=== PATIENT | male | born 1965 | race Caucasian/White ===

== ENCOUNTER 2016-05-27 20:09 | Emergency (ER) | payer BC ==
--- NOTE | ~2016-05-27 | ER ---
PATIENT'S NAME: SAURABH ROMERO [facility] AGE: 50 Y [address] ROOM: [place] [address] LOCATION: [facility] ADMIT DATE: 05/27/2016 ER/Outpatient Report DISCHARGE DATE: 05/27/2016 FAMILY PHYSICIAN: Dawson Naqvi MD ATTENDING PHYSICIAN: Walter Moore Time of Arrival: 2013 hours. Time of evaluation: 2035 hours. CHIEF COMPLAINT: Abdominal pain. HISTORY OF PRESENT ILLNESS: The patient has a history of chronic abdominal pain. He states that he has ran out of his Fentora pills that he takes for his abdominal pain. He states he has had pain more often this last month than he had been. His pain had been pretty well controlled with Fentora. He does see Dr. Perry for pain control. He states the pain tonight started about an hour and half ago. He has been nauseated, has only vomited x1. States he had a bowel movement today. He has had some problems between diarrhea and constipation. He denies feeling fever or chills. He denies any urinary changes. ALLERGIES: HE HAS NO KNOWN ALLERGIES. CURRENT MEDICATIONS: On his chart and reviewed by me. PAST MEDICAL HISTORY: Hiatal hernia, chronic abdominal pain. PAST SURGICAL HISTORY: None, has had a colonoscopy and endoscopy in the past. SOCIAL HISTORY: Smokes half pack per day and has for the last 15 years. Denies use of drugs or alcohol. Does do chewing tobacco also. REVIEW OF SYSTEMS: All negative other than those mentioned in the HPI. PHYSICAL EXAMINATION: VITAL SIGNS: He weighs 77.8 kg. Blood pressure is 125/88, pulse is 61, respirations 18, temperature of 96.6, O2 saturation is 99% on room air. GENERAL: He is awake, alert, and oriented x4. PATIENT'S NAME: SAURABH ROMERO [facility] AGE: 50 Y [address] ROOM: [place] [address] LOCATION: [facility] ADMIT DATE: 05/27/2016 ER/Outpatient Report DISCHARGE DATE: 05/27/2016 FAMILY PHYSICIAN: Dawson Naqvi MD ATTENDING PHYSICIAN: Walter Moore SKIN: [place], warm, and dry. RESPIRATIONS: Even and nonlabored. Lung sounds are clear throughout. HEART: Regular rate and rhythm. ABDOMEN: Soft and nondistended. Bowel sounds are present. He has generalized tenderness in the mid abdominal area. He denies the pain being any different than he normally does. Last time he ran out of his pain medicine and came to the ER, we gave him fentanyl patch to wear for 3 days. He states that did help and would like to try that again. Fentanyl transdermal patch 50 mcg/hour x1 was ordered from the pharmacy and placed it on the patient. IMPRESSION: Chronic abdominal pain. PLAN: Home, rest. Leave the patch on. He is to see Dr. Naqvi within the next 1- 2 days. Return to the ER as needed. He verbalized understanding. RALEIGH RAWLS APRN FOR MD FATEMEH RAYO/danielle /[id number] d: 05/28/168 t: 06/03/16 1304, OUTPATIENT REPORT
[~2016-05-27 20:09] MED LIST: ATIVAN2 MG; LIBRAX CAPSULE1 EACH PO; NORCO 5-325 MG1 TAB PO; PROBIOTIC1 EAC1 PO; TYLENOL EXTRA500 MG PO; ZANTAC 7575 MG PO
== END 2016-05-27 21:11 | disposition disaster alternative care site (69) ==
LOC: GMED 20:09
DX: R10.84 Generalized abdominal pain (principal); G89.29 Other chronic pain; F17.210 Nicotine dependence, cigarettes, uncomplicated

== ENCOUNTER 2016-05-28 01:38 | Emergency (ER) | payer BC ==
--- NOTE | ~2016-05-28 | ER ---
PATIENT'S NAME: SARUABH ROMERO [facility] AGE: 50 Y [address] ROOM: [place] [address] LOCATION: [facility] ADMIT DATE: 05/28/2016 ER/Outpatient Report DISCHARGE DATE: FAMILY PHYSICIAN: Dawson Naqvi MD ATTENDING PHYSICIAN: Walter Moore Admission date and time documented in the medical record. I saw the patient at 0155 hours. CHIEF COMPLAINT: Abdominal pain. HISTORY OF PRESENT ILLNESS: The patient is a 50-year-old male, who was here earlier this evening with abdominal pain. He was given a fentanyl patch. He comes in early this morning with uncontrolled abdominal pain. The patient is on pain regimen from Dr. Perry, pain specialist, and he took additional pain medications and ran out, and he can not get any till Friday. He comes to the emergency room for pain control. As stated above, he was given a fentanyl patch and it was placed. No other complaints. The patient does have chronic pain, been here multiple multiple times, multiple multiple workups. He does have opioid dependence. Pain, that he has, has never been delineated. No evidence has ever been found. HOME MEDICATIONS: See attached medication list. ALLERGIES: PENICILLIN. SOCIAL HISTORY: Nonsmoker. Occasional intake of alcohol. SIGNIFICANT PAST MEDICAL HISTORY: Headaches, chronic intermittent abdominal pain, opioid dependence, depression, anxiety, gastritis, colitis, ileitis, colon polyps, remote tobacco abuse. OPERATIONS: Esophagogastroduodenoscopy and colonoscopy. REVIEW OF SYSTEMS: All systems reviewed by me are negative with the exception of those discussed in the history of present illness. PHYSICAL EXAMINATION: PATIENT'S NAME: SAURABH ORMERO [facility] AGE: 50 Y [address] ROOM: [place] [address] LOCATION: [facility] ADMIT DATE: 05/28/2016 ER/Outpatient Report DISCHARGE DATE: FAMILY PHYSICIAN: Dawson Naqvi MD ATTENDING PHYSICIAN: Walter Moore VITAL SIGNS: Temperature 98 tympanic, pulse 65, respirations 20, blood pressure 94/72, O2 saturation on room air is 94%. HEAD: Normocephalic. EYES, EARS, NOSE, THROAT: Clear. Mucous membranes moist. NECK: Negative. LUNGS: Clear. HEART: Regular. ABDOMEN: Soft, hypoactive bowel tones. No distention. Diffuse tenderness. No surgical abdomen. No true guarding or rigidity. No rebound tenderness. EXTREMITIES: Intact. NEUROVASCULAR: Intact. SKIN: Clear. EMERGENCY DEPARTMENT COURSE: I did give the patient IV normal saline 1 L in the emergency department. I gave him 1 mg of Ativan, 50 mg of Benadryl, 10 mg of Reglan IV. IMPRESSION: 1. Chronic abdominal pain. 2. Opioid dependence. PLAN: After his IV fluids and medications, he was dismissed home. Continue present home medications and care. Follow up with personal physician later today. MD SHAYLA RAYO/modl /[id number] d: 05/28/16 0357 t: 05/28/16 1829, OUTPATIENT REPORT
== END 2016-05-28 03:17 | disposition disaster alternative care site (69) ==
LOC: GMED 01:38
DX: R10.9 Unspecified abdominal pain (principal); G89.29 Other chronic pain; F11.20 Opioid dependence, uncomplicated; F32.9 Major depressive disorder, single episode, unspecified; F41.9 Anxiety disorder, unspecified; Z88.0 Allergy status to penicillin
CPT/HCPCS: J1200; J2060; J2765; J7030

== ENCOUNTER 2016-10-01 23:00 | Emergency (ER) | payer BC ==
--- NOTE | ~2016-10-01 | ER ---
PATIENT'S NAME: SAURABH ROMERO [facility] AGE: 50 Y [address] ROOM: [place] [address] LOCATION: [facility] ADMIT DATE: 10/01/2016 ER/Outpatient Report DISCHARGE DATE: 10/02/2016 FAMILY PHYSICIAN: Dawson Naqvi MD ATTENDING PHYSICIAN: Jasmine Clay Time of Arrival: 2300 hours. Time of Evaluation: 2307 hours. CHIEF COMPLAINT: Chronic abdominal pain. HISTORY OF PRESENT ILLNESS: This is a 50-year-old male who presents to the ER, who states he has chronic abdominal pain. He has been worked up multiple times for it in the past. He states he is currently doctoring with Dr. Naqvi and a pain specialist. The patient reports that he does not get his pain medication until tomorrow and there is a mail order, so he does not believe that he can get through his 10/10 pain until tomorrow morning. He denies any changes of his abdominal pain. He has had no fever or chills. No troubles with bowel movements or urination. He states the last time they gave him some IV fluids and he states that worked well for him. ALLERGIES: NO KNOWN ALLERGIES. MEDICATIONS: Please see medication list in nurse's notes. PAST MEDICAL HISTORY: Chronic abdominal pain, hiatal hernia, gastritis, colitis, ileitis, colon polyps. PAST SURGICAL HISTORY: EGD and colonoscopy. SOCIAL HISTORY: Denies smoking, drug, or alcohol use. REVIEW OF SYSTEMS: All systems reviewed were negative with the exception of those discussed in the HPI. PHYSICAL EXAMINATION: VITAL SIGNS: Height 6 feet stated, weight 69.4 kg taken, blood pressure is PATIENT'S NAME: SAURABH ROMERO [facility] AGE: 50 Y [address] ROOM: [place], [place] [address] LOCATION: ED ADMIT DATE: 10/01/2016 ER/Outpatient Report DISCHARGE DATE: 10/02/2016 FAMILY PHYSICIAN: Dawson Naqvi MD ATTENDING PHYSICIAN: Jasmine Clay 129/90, pulse 61, respirations 18, temperature 96.9 degrees tympanically, and saturations 100% on room air. Sharon Coma Score is 15. GENERAL: Alert, thin male, in mild distress. HEENT. Head: Normocephalic. Eyes: Pupils are equal and reactive to light. He does display moist mucous membranes. LUNGS: Clear to auscultation bilaterally. No wheezes or crackles. HEART: Regular rate and rhythm. ABDOMEN: Soft. He has generalized tenderness in all 4 quadrants with palpation. No guarding, no rebound tenderness. He has good bowel sounds throughout. No masses were palpated. EXTREMITIES: No clubbing or cyanosis. He has full range of motion of all limbs. LABORATORY DATA AND X-RAYS: None were done. IMPRESSION: Chronic abdominal pain. ASSESSMENT AND PLAN: I did review the patient's computer chart. We did give him IV fluids along with 1 mg of Ativan, 10 mg of Reglan, 50 mg of Benadryl IV. The patient states that this did not take his pain away and he also states another time they gave him a fentanyl patch that usually will help him in a day or so. I also reviewed the patient's charts and according to this, he did receive that a couple of times prior. I did discuss the patient's care with Dr. Clay. We did decide to give him a fentanyl patch 50 mcg to his right chest. I told him that he will no longer receive this in the emergency room and that he needs to see his pain specialist for any other sort of patches like this as they see fit for that. He needs to continue to monitor his symptoms closely, and I would like him to follow up with his primary care physician tomorrow. The patient understands and agrees with care. VLAD KEARNEY PA-C FOR MD ZAKI DAVIS/danielle /[id number] d: t: 10/05/16 1750, OUTPATIENT REPORT
== END 2016-10-02 00:30 | disposition disaster alternative care site (69) ==
LOC: GMED 23:00
DX: G89.29 Other chronic pain (principal); R10.9 Unspecified abdominal pain; Z98.890 Other specified postprocedural states; Z79.899 Other long term (current) drug therapy
CPT/HCPCS: J1200; J2060; J2765; J7030